=== PATIENT | female | born 1985 | race American Indian/Alaskan Native ===

== ENCOUNTER 2016-09-16 17:19 | Emergency (ER) | payer BC, MEDICAID, OTHER ==
[2016-09-16 17:41] VITALS: BP 129/88
--- NOTE | 2016-09-16 20:19 | Emergency Department Report ---
ED General Adult HPI - General Chief complaint: Sore Throat Stated complaint: SORE THROAT Time Seen by Provider: 09/16/16 19:44 Source: patient Mode of arrival: Ambulatory Limitations: No Limitations - History of Present Illness Initial comments: PT c/o sore throat and body aches x 2 days. 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 PT states she is always getting sick. PT states she has had fever today and it improved after taking Tylenol. PT states her throat still hurts and feels like it is burning. PT states last week, she threw up one morning and had some burning in her throat. PT states after she threw up, she took a home test and it was negative. PT states she has had her IUD in place for 2 years and she does not get a cycle due to her control. PT states she feels like she has something in her throat and she will cough to clear her throat and that makes her pain worse. PT states she not coughing anything up. MD Complaint: sore throat Onset/Timin -: Gradual Radiation: non-radiation Severity scale (0 -10): 8 Quality: burning, constant Consistency: constant Improves with: medication (mildly improved with tylenol. ) Worsens with: eating Associated Symptoms: cough (feels like she needs to clear her throat ), malaise , nausea/vomiting (last week ). denies: chest pain, shortness of breath - Related Data Previous Rx's Medication Instructions Recorded Last Taken Type Amoxicillin 500 mg PO BID #20 capsule 09/16/16 Unknown Rx Benzonatate [Tessalon Perles] 100 mg PO Q8HR PRN #12 capsule 09/16/16 Unknown Rx Famotidine [Pepcid] 20 mg PO BID #28 tablet 09/16/16 Unknown Rx Guaifenesin/Pseudoephedrne HCl 1 each PO BID #14 tab.er.12h 09/16/16 Unknown Rx [Mucinex D ER 1,200-120 mg Tab] Allergies Allergy/AdvReac Type Severity Reaction Status Date / Time diphenhydramine HCl Allergy Intermediate Swelling Verified 03/28/14 09:18 [From Benadryl] ED Review of Systems ROS: Stated complaint: SORE THROAT Other details as noted in HPI Comment: All other systems reviewed and negative Constitutional: fever, malaise ENT: throat pain. denies: ear pain, congestion Respiratory: cough (feels liek she needs to clear her throat ). denies: shortness of breath, wheezing Cardiovascular: denies: chest pain Gastrointestinal: nausea, vomiting (last week, non today ) Skin: denies: rash ED Past Medical Hx - Past Medical History Previous Medical History?: Yes Hx Hypertension: Yes (no medsz) Hx Congestive Heart Failure: No Hx Diabetes: Yes (pre diabetic) Hx Deep Vein Thrombosis: No Hx GERD: Yes (NO MEDS) Hx Renal Disease: No Hx Sickle Cell Disease: No Hx Seizures: No Hx Asthma: No Hx COPD: No Hx HIV: No - Surgical History Past Surgical History?: Yes Additional Surgical History: Pilonidal cyst. ectopic x 2-right ovary and tube removed. c section - Social History Smoking Status: Never Smoker - Medications Home Medications: Home Medications Medication Instructions Recorded Confirmed Last Taken Type Amoxicillin 500 mg PO BID #20 capsule 09/16/16 Unknown Rx Benzonatate [Tessalon Perles] 100 mg PO Q8HR PRN #12 capsule 09/16/16 Unknown Rx Famotidine [Pepcid] 20 mg PO BID #28 tablet 09/16/16 Unknown Rx Guaifenesin/Pseudoephedrne HCl 1 each PO BID #14 tab.er.12h 09/16/16 Unknown Rx [Mucinex D ER 1,200-120 mg Tab] ED Physical Exam - General Limitations: No Limitations General appearance: alert, in no apparent distress, obese - Head Head exam: Present: atraumatic, normocephalic, normal inspection - Eye Eye exam: Present: normal appearance, PERRL, EOMI. Absent: conjunctival injection - ENT ENT exam: Present: mucous membranes moist, TM's normal bilaterally, normal external ear exam - Expanded ENT Exam Expanded Mouth exam: Present: normal external inspection. Absent: drooling, trismus Throat exam: Positive: tonsillar erythema, tonsillomegaly. Negative: R peritonsillar mass, L peritonsillar mass - Neck Neck exam: Present: normal inspection, tenderness, full ROM, lymphadenopathy - Respiratory Respiratory exam: Present: normal lung sounds bilaterally. Absent: respiratory distress, wheezes, chest wall tenderness - Cardiovascular Cardiovascular Exam: Present: regular rate, normal rhythm, normal heart sounds - GI/Abdominal GI/Abdominal exam: Present: soft. Absent: tenderness - Extremities Exam Extremities exam: Present: normal inspection, full ROM - Back Exam Back exam: Present: normal inspection, full ROM - Neurological Exam Neurological exam: Present: alert, oriented X3, normal gait - Psychiatric Psychiatric exam: Present: normal affect, normal mood - Skin Skin exam: Present: warm, dry, intact, normal color ED Course Vital Signs 09/16/16 17:37 Temperature 99.6 F Pulse Rate 56 L Respiratory 18 Rate Blood Pressure 129/88 Blood Pressure 129/85 [Right] O2 Sat by Pulse 100 Oximetry - Reevaluation(s) Reevaluation #1: 09/16/16 20:22 Due to pt's hx of vomiting in the am last week, pt offered test. PT declined. PT states she knows she is not . 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 pt's tonsils are enlarged and erythematous, will treat empirically for strep pharyngitis. - Pulse Oximetry Interpretation Digit-Finger Initial Pulse Oximetry Readin Actions Taken: none ED Medical Decision Making - Differential Diagnosis viral uri, strep pharyngits, gerd Critical Care Time: No Critical care attestation.: If time is entered above; I have spent that time in minutes in the direct care of this critically ill patient, excluding procedure time. ED Disposition Clinical Impression: Tonsillitis, Dry cough Disposition: DISCHARGED TO HOME OR SELFCARE Is pt being admited?: No Does the pt Need Aspirin: No Condition: Stable Instructions: Chronic Cough (ED), Tonsillitis (ED) Prescriptions: Amoxicillin 500 mg PO BID #20 capsule Benzonatate [Tessalon Perles] 100 mg PO Q8HR PRN #12 capsule PRN Reason: Cough Famotidine [Pepcid] 20 mg PO BID #28 tablet Guaifenesin/Pseudoephedrne HCl [Mucinex D ER 1,200-120 mg Tab] 1 each PO BID # 14 tab.er.12h Referrals: ISIDORO SEGURA MD [Primary Care Provider] - 3-5 Days Forms: Work/School Release Form(ED) Time of Disposition: 20:26
== END 2016-09-16 20:33 | disposition home or self-care (01) ==
LOC: ED 17:19
DX: J03.90 Acute tonsillitis, unspecified (principal); I10 Essential (primary) hypertension; E11.9 Type 2 diabetes mellitus without complications; K21.9 Gastro-esophageal reflux disease without esophagitis
CPT/HCPCS: 99282